=== PATIENT | female | born 1955 | race Caucasian/White ===

== ENCOUNTER → 2021-10-04 02:45 | Outpatient (CLI) | payer MEDICAID, SELFPAY ==
--- NOTE | 2021-10-04 07:45 | DI.MAMMO_ITS ---
Exam(s) MAMMO SCREENING EXAM: MAMMO SCREENING CLINICAL HISTORY: screening,Z12.39. TECHNIQUE: Bilateral full field digital CC and MLO mammographic images were obtained with 3D tomosyn thesis and utilizing computer aided detection (CAD). COMPARISON: None FINDINGS: There are no spiculated masses nor malignant appearing microcalcification groups. There is no significant architectural distortion nor skin thickening-retraction. IMPRESSION: No radiographic evidence of malignancy. BI-RADS Category 1 - Negative Breast Density - Category B - Scattered areas of fibroglandular density Breast density Category C or D implies that the patient has dense breast tissue. Dense breast tissue can make it harder to find cancer on a mammogram. Dense breast tissue is also associated with an incr eased risk of breast cancer. This information about the result of the mammogram report was provided to the patient to raise their awareness. Use this report when you speak with the patient about their risks for breast cancer, which includes their family history. At that time, you may recommend additional screening tests (Ultrasoun d or MRI) as these tests may add significant information. A negative radiographic report should not delay biopsy if a dominant or clinically suspicious mass is present. Up to ten percent of cancers are not identified on mammography. A negative report may reinforce clinical impression. Adenosis and dense breasts may obscure an underlying neoplasm. False positive reports average 6 to 10%. Patient will receive a letter notifying them of these results.
== END ==
PROVIDERS: PCP Nurse Practitioner Adult Health; Visit Provider Nurse Practitioner Adult Health
DX: Z12.31 Encounter for screening mammogram for malignant neoplasm of breast (principal)
CPT/HCPCS: 77063; 77067

== ENCOUNTER 2021-10-05 03:23 | Outpatient (CLI) | payer MEDICAID, SELFPAY ==
[2021-10-05 10:33] LABS: Anion Gap 9.6 mmol/L (3-11); BUN 9 mg/dL (7-18); CO2 28.4 mmol/L (21.0-32.0); CREATININE 0.7 mg/dL (0.55-1.02); Calcium 9.2 mg/dL (8.5-10.1); Chloride 102 mmol/L (98-107); Glucose 100 mg/dL (74-106); Potassium 4.5 mmol/L (3.5-5.1); Sodium 140 mmol/L (136-145)
[2021-10-05 11:22] LABS: Calculated LDL 147 mg/dL (<100); Cholesterol 235 mg/dL (<200); Folate 5.6 ng/mL (8.6-20.0); HDL Cholesterol 63 mg/dL (40-60); Triglyceride 128 mg/dL (<150); Vitamin B12 407 pg/mL (193-986)
[2021-10-06 09:55] LABS: HIV-1/2 Ag & Ab Screen Negative (Negative)
[2021-10-06 10:05] LABS: Hepatitis C Ab w Rflx HCV PCR Negative (Negative)
== END 2021-10-05 03:24 | disposition home or self-care (01) ==
LOC: LBO 03:24
PROVIDERS: PCP Nurse Practitioner Adult Health; Referring Provider Nurse Practitioner Adult Health; Visit Provider Nurse Practitioner Adult Health
DX: Z11.4 Encounter for screening for human immunodeficiency virus [HIV] (principal); Z11.59 Encounter for screening for other viral diseases; Z13.1 Encounter for screening for diabetes mellitus; Z13.220 Encounter for screening for lipoid disorders; Z83.3 Family history of diabetes mellitus
CPT/HCPCS: 36415; 80048; 80061; 86803; 87389; 82607; 82746

== ENCOUNTER 2021-11-12 16:04 | Outpatient (REF) | payer MEDICAID, SELFPAY ==
--- NOTE | 2021-11-12 15:30 | PAPFT_PTH ---
PATIENT: Chante Thomas LOC: [facility] U#:[id number] AGE/SX: 66/F ROOM: RE11/12/[address]: Cristy Porras APRN : 1955 BED: DIS: 11/12/2021 SPEC #: [id number] RECD: 11/12/21 18:07 STATUS: STEPHENIE REQ #: [id number] CURTIS: 11/12/21 15:[address]: Cristy Porras DEPT: [facility] Cytology RECD BY: Kathy Umana Tissues: 1 - CX/ENDOCX FOR PAP SMEARS Procedures: PAP THIN PREP/[facility] Screening HPV DNA PROBE Comments: [id number]
== END 2021-11-12 16:05 | disposition home or self-care (01) ==
LOC: LBN 16:04
PROVIDERS: PCP Nurse Practitioner Adult Health; Visit Provider Nurse Practitioner Adult Health
DX: Z12.4 Encounter for screening for malignant neoplasm of cervix (principal); Z11.51 Encounter for screening for human papillomavirus (HPV)
CPT/HCPCS: 88142; 87624

== ENCOUNTER 2022-12-02 14:12 | Outpatient (CLI) | payer MEDICARE, MEDICAID, SELFPAY ==
--- NOTE | 2022-12-02 14:00 | RT.EKG_ITS ---
APPROVED REPORT Exam: Resting ECG Reason for Exam: pre syncope Patient Location: O HR:55 bpm ECG Measurements Heart Rate 55 AXIS MO 142 P 39 QRSd 106 QRS 9 QT 413 T 57 QTc 395 Conclusion Sinus rhythm...normal P axis, V-rate 50- 99 Baseline wander in lead(s) V3 Normal Electrocardiogram
== END 2022-12-02 14:13 | disposition home or self-care (01) ==
PROVIDERS: PCP Nurse Practitioner Adult Health; Visit Provider Emergency Medicine
DX: R55 Syncope and collapse (principal)
CPT/HCPCS: 93010

== ENCOUNTER → 2022-12-02 19:15 | Outpatient (CLI) | payer MEDICARE, MEDICAID, SELFPAY ==
--- NOTE | 2022-12-02 14:45 | DI.RAD_ITS ---
Exam(s) XR CHEST 2V PA LATERAL EXAM: XR CHEST 2V PA LATERAL CLINICAL HISTORY: folate def SYNCOPE AND COLLAPSE R55 DEFICIENCY E53.8 TECHNIQUE: 2D digital imaging was performed. COMPARISON: No exams were available for comparison FINDINGS: HEART: Normal size. Aorta: Not dilated. PULMONARY VASCULATURE: Normal. LUNGS: Hyperinflated but clear. PLEURAL SPACE: No pleural effusion or pneumothorax. BONE:Unremarkable for age. IMPRESSION: No acute abnormality. DATA REPOSITORY: RADIATION DOSE DELIVERED:
== END ==
PROVIDERS: PCP Nurse Practitioner Adult Health; Visit Provider Emergency Medicine
DX: E53.8 Deficiency of other specified B group vitamins (principal); R55 Syncope and collapse
CPT/HCPCS: 36415; 80053; 80061; 71046; 82746; 84443; 85025; 86140

== ENCOUNTER 2022-12-02 21:16 | Outpatient (CLI) | payer MEDICARE, MEDICAID, SELFPAY ==
[2022-12-02 15:20] LABS: Abs Immature Grans 0.03 10^3/uL (0.0-0.06); Absolute Basophil Count 0.06 10^3/uL (0.0-0.2); Absolute Eosinophil Count 0.06 10^3/uL (0.0-0.7); Absolute Lymphocyte Count 3.23 10^3/uL (1.2-3.4); Absolute Monocyte Count 0.59 10^3/uL (0.1-0.8); Basophils % 0.5; Eosinophils % 0.5; HCT 42.7 % (36.0-46.0); HGB 14.4 g/dL (11.2-15.7); Immature Grans % 0.3; Lymphocytes % 28.1; MCH 30.1 pg (27.0-33.0); MCHC 33.7 % (32.0-36.0); MCV 89 fL (80-95); MPV 10.8 fL (8.0-11.0); Monocytes % 5.1; Neutrophils % 65.5; Platelet Count 265 10^3/uL (130-400); RBC 4.79 10^6/uL (3.93-5.22); RDW 13.2 % (11.7-14.6); RDW-SD 43.5 fL; WBC 11.49 10^3/uL (4.4-10.8)
[2022-12-02 15:23] LABS: Absolute Neutrophil Count 7.53 10^3/uL (1.2-6.7)
[2022-12-02 16:22] LABS: ALT 22 U/L (14-59); AST 12 U/L (15-37); Alkaline Phosphatase 87 U/L (46-116); Anion Gap 9.8 mmol/L (3-11); BUN 12 mg/dL (7-18); Bilirubin, Total 0.2 mg/dL (0.2-1.0); CO2 25.2 mmol/L (21.0-32.0); CREATININE 0.8 mg/dL (0.55-1.02); Calcium 9.5 mg/dL (8.5-10.1); Calculated LDL 145 mg/dL (<100); Chloride 99 mmol/L (98-107); Cholesterol 239 mg/dL (<200); Estimated GFR 81.72 (mL/min/1.73m2); Glucose 104 mg/dL (74-106); HDL Cholesterol 64 mg/dL (40-60); Potassium 3.7 mmol/L (3.5-5.1); Sodium 134 mmol/L (136-145); TSH 1.99 uIU/mL (0.36-3.74); Total Protein 7.6 g/dL (6.4-8.2); Triglyceride 150 mg/dL (<150)
[2022-12-02 16:25] LABS: Folate 5.5 ng/mL (8.6-20.0)
[2022-12-02 17:11] LABS: C-Reactive Protein 0.08 mg/dL (0.0-0.3)
== END 2022-12-02 21:17 | disposition home or self-care (01) ==
LOC: LBO 21:18
PROVIDERS: PCP Nurse Practitioner Adult Health; Visit Provider Emergency Medicine
DX: E53.8 Deficiency of other specified B group vitamins (principal); R55 Syncope and collapse; E03.9 Hypothyroidism, unspecified
CPT/HCPCS: 36415; 80053; 80061; 82746; 84443; 85025; 86140

== ENCOUNTER 2022-12-19 00:46 | Outpatient (CLI) | payer MEDICARE, MEDICAID, SELFPAY ==
--- NOTE | 2022-12-19 07:30 | DI.NM_ITS ---
APPROVED REPORT Exam: Pharmacologic Patient Location: Out-Patient Room/Bed: Stress Nurse: Edson Hunt RN Ordering Provider:EDENILSON ALAMO, Contact Number: [phone] BMI: 19.75 Baseline Rhythm: Sinus Bradycardia Indications: Chest pain, Lightheaded followed by vomiting. Medical History Medical History: near syncope, Elevated LDL, smoker. Cardiac Medications: none Allergies: No known drug allergies Cardiac Risk Factors: smoker, elevated LDL Previous Cardiac Procedures: none Pretest Chest Pain Characteristics: none Exercise History: Physically active Physical Disabilities: none Lung Sounds: Clear to auscultation Heart Sounds: Regular Stress Test Details Test: Pharmacologic stress testing performed using 0.4 mg of regadenoson per 5 mL given IV over 10 s econds. Reason for pharmacologic stress test: Excessive artifact.. Nuclear Acquisition: Rest Tc-99m/Stress Tc-99m 1 day Rest Isotope: Tc-99m Sestamibi. Dose: 10 Date: 12/19/2022 Injection Time: 1100 Stress Isotope: Tc-99m Sestamibi. Dose: 31 Date: 12/19/2022 Injection Time: 1240 HR Resting HR Supine: 55 bpm Max Heart Rate (APMHR): 155.289060 bpm Resting HR Standin bpm Target HR (85% APMHR): 131.933614 bpm Max HR Achieved: 141 bpm % of APMHR: 90.97 Recovery HR: 81 bpm HR response to stress: Normal HR response to stress BP Resting BP Supine: 110/82 mmHg Resting BP Standin/72 mmHg Max BP: 128/72 mmHg Recovery BP: 110/72 mmHg BP response to stress: Normal blood pressure response to stress. ECG Resting ECG: Sinus Bradycardia Ectopy: Rare PAC. Stress ECG: Sinus Tachycardia ST Change: No significant ST segment changes noted Arrhythmia: Frequent PAC's, occasional run of SVT. Recovery ECG: Sinus Rhythm Recovery ST Change: No significant ST segment changes noted Recovery Arrhythmia: Occasional PAC Clinical Stress Symptoms: Occasional congested cough. Nausea. Rate Pressure Product: [id number] Stress ECG Conclusion 1. Resting electrocardiogram was within normal limits 2. Patient underwent testing using pharmacologic stress with regadenoson 3. Electrocardiographic portion of the test was nondiagnostic 4. There were no dysrhythmias 5. See MPI report Stress Test Summary STAGE HR BP SpO2 Symptoms NOTES 1 min post Lexiscan injection 60 118/82 99 none 3 min post Lexiscan injection 98 122/68 Nausea, congested cough. 6 min post Lexiscan injection 81 110/72 none Unable to perform Travis due to excesive artifact. Episodes of SVT with walking prior to walking Kathy scan attempt. Lying Lexiscan done. MPI Conclusion Myocardial perfusion is normal. There is no ischemia or evidence of prior infarction Ejection fraction is 57% with normal wall motion Radiologist Interpretation Radiologist agrees with Pantry Chef's Interpretation. Radiologist Interpretation by: Liu Escobar MD Interpretation Date/Time: 12/19/2022 15:16:58
[2022-12-19] MEDS: Regadenoson 0.4 MG/5 ML SYR IVP (13:10)
== END 2022-12-19 01:06 ==
LOC: DI 00:46
PROVIDERS: PCP Nurse Practitioner Adult Health; Visit Provider Emergency Medicine
DX: R06.09 Other forms of dyspnea (principal)
CPT/HCPCS: 78452; 93016; 93018; 93017; J2785

== ENCOUNTER 2023-09-30 21:40 | Emergency (ER) | payer MEDICARE, SELFPAY ==
[2023-09-30 21:42] VITALS: BP 133/93; PULSE 67; RESP 14; TEMP 36.1; O2SAT 99
--- NOTE | 2023-09-30 22:03 | ED.GENADUL_ITS ---
Discharge Plan Disposition Patient Disposition: Home Condition: Good Discharge Details Clinical Impression: Finger infection Primary Care Provider: Cristy Porras ED Provider: Akil Mirzas and New Rx's Prescriptions: New amoxicillin-pot clavulanate 875-125 mg tablet 1 tab PO BID Qty: 12 0RF No Action valacyclovir [Valtrex] 1 gram tablet 1,000 mg PO BID Qty: 14 0RF Rx Instructions: Start within 72h of symptoms folic acid 1 mg tablet 1 mg PO DAILY Qty: 90 3RF Discharge Instructions Instructions: Wound Infection Additional Instructions: You were seen for finger infection. You have been started on antibiotics. Recommend soaking that finger in Epsom salt solution once or twice a day now that we have opened up the side that has been draining. Please follow-up with your primary care physician next week for recheck. Return to ED for increasing pain, swelling, extension down into the hand, fever, other concerns. HPI General Mode of arrival: ambulatory . Date/Time Provider Initiated Documentation: 09/30/23 21:48 . Limitations to Documentation: no limitations . Information obtained by: patient and RN notes reviewed . HPI Narrative: Patient presents to ED with left ring finger pain and swelling. Patient has had a pimple on the side of her ring finger for weeks. She periodically picks at it and does have some purulent drainage from it. Does not recall any specific injury. In the last 24 hours finger has become very swollen, red, painful. Denies fever or chills. Denies redness or streaking up the finger, hand, arm. Related Data Home Medications ?Medication ?Instructions ?Recorded ?Confirmed folic acid 1 mg tablet 1 mg PO DAILY #90 tabs 12/05/22 09/30/23 valacyclovir 1 gram tablet 1,000 mg PO BID #14 tabs 12/07/22 09/30/23 (Valtrex) amoxicillin 875 mg-potassium 1 tab PO BID #12 tabs 09/30/23 clavulanate 125 mg tablet Previous Rx's ?Medication ?Instructions ?Recorded folic acid 1 mg tablet 1 mg PO DAILY #90 tabs 12/05/22 valacyclovir 1 gram tablet 1,000 mg PO BID #14 tabs 12/07/22 (Valtrex) amoxicillin 875 mg-potassium 1 tab PO BID #12 tabs 09/30/23 clavulanate 125 mg tablet Allergies Allergy/AdvReac Type Severity Reaction Status Date / Time No Known Allergies Allergy Verified 09/30/23 21:47 General Stated Complaint: Cellulitis RAJESH: 4 Review of Systems Narrative: Per HPI Exam Narrative Exam Narrative: Const: WDWN female in NAD. VS per triage. HEENT: NC/AT. Normal facial exam. Neck: Supple. Trachea midline. Lungs: Normal respiratory effort Neuro: A+O x 3. Normal speech, mentation, gait. Cranial nerves II - XII grossly intact. No gross motor or sensory deficit. Ext: No C/C/E. Left ring finger with fluctuant tender area ulnar aspect, distal finger just past the DIP joint. Erythema and swelling around the cuticle to the pad, all distal to DIP joint. Ring present proximally and patient has been unable to remove. Proximal finger is not swollen or red or painful at this time. Good flexion extension present. Course Vital Signs Vital signs: Vital Signs Temperature 97.0 F L 09/30/23 21:42 Pulse 67 09/30/23 21:42 Respiratory Rate 14 09/30/23 21:42 Blood Pressure 133/93 H 09/30/23 21:42 Pulse Oximetry 99 09/30/23 21:42 Temperature 97.0 F L 09/30/23 21:42 Pulse 67 09/30/23 21:42 Respiratory Rate 14 09/30/23 21:42 Blood Pressure 133/93 H 09/30/23 21:42 Pulse Oximetry 99 09/30/23 21:42 Oxygen Delivery Method Room Air 09/30/23 21:42 Oxygen Flow Rate 0 09/30/23 21:42 Pain Level 9 09/30/23 21:42 Procedures Abscess I/D Site: Hand Side (if applicable): Left Technique: Incised with #11 Blade Irrigation: Yes Packing used?: None Nerve Block Nerve Block 1: Local Anesthetic: Lidocaine 2% Amount of anesthesia used (mL): 3 Side: left Nerve Blocks: digital Procedure Successful: Yes Patient Tolerated Procedure: well Complications: none Medical Decision Making Patient presenting with what appears to be an abscess with distal left ring finger now with erythema, swelling, pain involving finger distal to the DIP joint. No evidence of tendon involvement. Ring is cut off with permission from patient. Digital block performed. I&D performed. Minimal pus, mostly bleeding. Forceps and irrigation to clean underlying cavity. No obvious foreign body found. Given the chronicity of the wound will place on Augmentin. Follow-up with primary care next week for recheck. Return precautions provided. PFSH All Active Problems (Updated 09/30/23 @ 23:00 by Akil Mirza MD) Finger infection (Acute) Near syncope (Acute ~11/2022) Uterine prolapse (Acute) Lung cancer screening declined by patient (Acute) Elevated LDL cholesterol level (Acute) Folate deficiency (Chronic ~2021) Tetrahydrocannabinol (THC) dependence (Chronic) Nicotine use disorder (Chronic) Vaginal mass (Chronic ~1985) Non-healing skin lesion (Acute ~2018) Medical History Squamous cell carcinoma in situ (~04/2022) central chest re-shave biopsy Dr Peralta,[facility] History of herpes genitalis Surgical History S/P skin biopsy (~04/2022) [facility] Central chest re-shave biopsy scar Family History Father , CVA, late 70s Alcohol use disorder Diabetes Hypertension Stroke Mother , late 70s from lymphoma Cancer Bladder Hyperlipidemia Social History Smoking/Tobacco Use Status: Current every day Tobacco Type: cigarettes Years smoked: 50 Tobacco: How many years used: 50 Quit status: considering quitting Second Hand Exposure: Yes Smoking risk assessment performed?: Yes Alcohol Intake: current Alcohol Intake frequency: holidays/special occasions only Drug use: Daily Substance use type: marijuana and hallucinogens Adopted: No Caregiver/Support person: No Foster care: No Household members: spouse and family Housing: house Number of Children: 3 number of grandchildren: 1 Communication Needs: None Education Level: high school Details: [employer] Do you need help understanding health information?: Often 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 Pets and animals: Yes Pets and animals: cat(s) and dog(s) Sexually active: No Do you think of yourself as: straight/heterosexual Current gender identity: female What is your relationship status?: How often do you talk on the phone with friends or family?: three or more times per week How often do you get together with friends or relatives?: three or more times per week Do you belong to any clubs or organized social groups?: no Panel score (0-1 are the most socially isolated patients): 2 What type of physical activity do you participate in: walking Duration: > 90 minutes/day Frequency: 5-6 times per week Seatbelt use: always Helmet use: Yes Helmet use: always Drive intox or ride w/intox delivery driver/customer service: No Do you feel safe at home: Yes Do you feel safe in your relationship?: Yes
--- NOTE | 2023-09-30 22:23 | NUR.NOTE ---
Nursing Note: removed ring with ring cutter as per .
== END 2023-09-30 23:12 | disposition home or self-care (01) ==
LOC: ER 23:00 → RED 23:12
PROVIDERS: Emergency Provider Emergency Medicine; PCP Nurse Practitioner Adult Health
DX: L02.512 Cutaneous abscess of left hand (principal); F17.210 Nicotine dependence, cigarettes, uncomplicated
CPT/HCPCS: 10060; 99283

== ENCOUNTER 2024-12-07 20:39 | Emergency (ER) | payer MEDICARE, SELFPAY ==
--- NOTE | 2024-12-07 20:30 | RT.EKG_ITS ---
APPROVED REPORT Exam: Resting ECG Reason for Exam: chest pain Patient Location: E HR:70 bpm ECG Measurements Heart Rate 70 AXIS W[place] [id number] P [id number] QRSd 77 QRS 98 QT 381 T 98 QTc 412 Conclusion Atrial fibrillation...? atrial activity Inferior infarct, acute...ST>0.10mV, T upright, II III aVF STEMI
[2024-12-07 20:40] VITALS: BP 92/71; PULSE 68; RESP 20; O2SAT 98
--- NOTE | 2024-12-07 20:40 | W.ED.GENAD ---
Discharge Plan Disposition Patient Disposition: Transfer-Acute Inpatient Care Specific Acute Inpt Facility: [facility] Condition: Critical Discharge Details Clinical Impression: ST elevation (STEMI) myocardial infarction, Cardiac arrest, Cardiac arrest with ventricular fibrillation, Ventricular tachycardia Primary Care Provider: Cristy Porras ED Provider: Franklin Ragland [place] Meds and New Rx's Prescriptions: Continued valacyclovir [Valtrex] 1 gram tablet 1,000 mg PO BID Qty: 14 0RF Rx Instructions: Start within 72h of symptoms cholecalciferol (vitamin D3) 50 mcg (2,000 unit) capsule 50 mcg PO DAILY Qty: 90 3RF folic acid 1 mg tablet 1 mg PO DAILY Qty: 90 3RF acetaminophen 500 mg tablet 1,000 mg PO Q6H PRN cholecalciferol (vitamin D3) 1,250 mcg (50,000 unit) capsule 1,250 mcg PO .Twice a week Rx Instructions: for 24 doses. enoxaparin 30 mg/0.3 mL syringe 30 mg subcut Q12H Rx Instructions: x 24 days methocarbamol 500 mg tablet 500 mg PO Q6H PRN oxycodone 5 mg tablet See Rx Instructions PO Q6H PRN (Reason: pain) Rx Instructions: 1-2 tablets orally every 6 hours PRN; Daily max dose 40mg #20 written 12/06/2023 by Orthopedics at [facility] Discharge Data Discharge Physician: Franklin Ragland HPI General Date/Time Provider Initiated Documentation: 12/07/24 20:40. HPI Narrative: Patient presents emergency department after she was at the over her at 6 PM and according to them he started having epigastric pressure and came to the emergency department about an hour and a half later stating that she did not feel good nauseous with epigastric pressure. Also reports she was nauseous Related Data Home Medications ?Medication ?Instructions ?Recorded ?Confirmed folic acid 1 mg tablet 1 mg PO DAILY #90 tabs 12/05/22 12/07/24 Held on 12/07/24. Instructions: Pt Stopped/Never Started valacyclovir 1 gram tablet 1,000 mg PO BID #14 tabs 12/07/22 12/07/24 (Valtrex) Held on 12/07/24. Instructions: Pt Stopped/Never Started acetaminophen 500 mg tablet 1,000 mg PO Q6H PRN 12/07/23 12/07/24 cholecalciferol (vitamin D3) 1,250 1,250 mcg PO .Twice a week 12/07/23 12/07/24 mcg (50,000 unit) capsule enoxaparin 30 mg/0.3 mL 30 mg subcut Q12H 12/07/23 12/07/24 subcutaneous syringe Held on 12/07/24. Instructions: Prescription Finished methocarbamol 500 mg tablet 500 mg PO Q6H PRN 12/07/23 12/07/24 Held on 12/07/24. Instructions: Pt Stopped/Never Started oxycodone 5 mg tablet See Rx Instructions PO Q6H PRN pain 12/07/23 12/07/24 Held on 12/07/24. Instructions: Prescription Finished cholecalciferol (vitamin D3) 50 50 mcg PO DAILY #90 caps 12/14/23 12/07/24 mcg (2,000 unit) capsule Previous Rx's ?Medication ?Instructions ?Recorded folic acid 1 mg tablet 1 mg PO DAILY #90 tabs 12/05/22 Held on 12/07/24. Instructions: Pt Stopped/Never Started valacyclovir 1 gram tablet 1,000 mg PO BID #14 tabs 12/07/22 (Valtrex) Held on 12/07/24. Instructions: Pt Stopped/Never Started cholecalciferol (vitamin D3) 50 50 mcg PO DAILY #90 caps 12/14/23 mcg (2,000 unit) capsule Allergies Allergy/AdvReac Type Severity Reaction Status Date / Time No Known Allergies Allergy Verified 12/07/24 22:19 General RAJESH: 4 Review of Systems Narrative: Review of Systems: Constitutional: No fevers, chills, sweats Eye: No recent visual problems ENT: No ear pain, nasal congestion, sore throat Respiratory: No shortness of breath, cough Cardiovascular: No Chest pain, palpitations, syncope Genitourinary: No hematuria Jatin/Lymph: Negative for bruising tendency, swollen lymph glands Endocrine: Negative for excessive thirst, excessive hunger Musculoskeletal: No back pain, neck pain, joint pain, muscle pain, decreased range of motion Integumentary: No rash, pruritus, abrasions Neurologic: Alert & oriented X 4 Psychiatric: No anxiety, depression Exam Narrative Exam Narrative: Exam; vitals signs as reported above normal Constitutional; In no mild distress, afebrile General: cooperative, healthy appearing, comfortable and no acute distress HEENT: Head: normal to inspection, no palpable skull fracture and normocephalic atraumatic Eyes: : appearance normal, both eyes and all related structures EOM intact bilaterally Pupils: PERRL : conjunctiva normal Direct ophthalmoscopy: normal light reflex, normal conjunctiva, normal visual acuity Ears: Normal TM, normal external canal Nose: normal no rhinorreha Neck no JVD, supple non tender Neck: normal visual inspection, full ROM and no lymphadenopathy Chest: normal inspection of the chest Respiratory : normal respiratory effort and able to speak in complete sentences no wheezing no rales Cardio Rate: regular rate, rhythm: regular rhythm normal heart sounds S1 and S2 no murmurs, gallops, or rubs GI : normal to inspection, normal bowel sounds, soft, non tender, non distended, no organomegaly Back/Spine/ no CVA tenderness Thoracic/Lumbar Spine: no tenderness or deformities Skin no rashes or lesions Neuro: patient alert oriented x 4 and no meningeal signs, Cranial Nerves: CN's II-XI intact bilaterally, Cognition: normal cognition, Speech: speech normal, Gait: normal gait, Depp tendon reflexes normal 2+ muscle strength 5/5 bilaterally Extremities, no edema, full range of motion, normal strength Course Patient presented to emergency department with epigastric pressure and EKG shows an ST segment elevation myocardial infarction primarily in the inferior leads with T wave inversion in V2 through V3 V4-V6. Bedside echo shows hypokinesis of the inferior lateral dai. Initially she received aspirin 324 mg Reevaluation(s) Time: 21:27 Reevaluation: Between 2126 hrs. 2 minutes after she received received tenecteplase patient goes into cardiac arrest with no pulseand respirations with a monitor showing ventricular fibrillation. At the time CPR was started she received 200 J of synchronized cardioversion so no pulse as she was in V. tach. She received other cardioversion and maximum voltage, was noted she went into torsade. At this time she received magnesium and another cardioversion putting back into normal sinus rhythm with a heart rate of 65. Amiodarone was given loading dose IV. Also magnesium was given. At this time [facility] helicopter paramedics arrived. patient was intubated with RSI successfully. Consultations Consultation #1: Consulted with [facility] cardiology who agreed that the patient will need tenecteplase, Brilinta, and a heparin infusion and be transported via helicopter to [facility]'s [facility] Procedure Airway Management Date of Procedure: 12/07/24 Time of Procedure: 21:32 Patient Consented: Emergent Case Indication: Airway injury, Apnea and Respiratory failure Provider that performed the procedure: Franklin Ragland Mallampati Class: 2 Sedation administered by provider performing procedure: Yes. Induction setup: Apneic Oxygenation, Bag Valve Mask Ventilation and Rapid Sequence Induction Ultrasound: Used/Image Saved Airway Type: Intubation Grade: Paralytic(indicate dose given): Succinylcholine Post Induction Medication Management(indicate dose given): Managed by Requesting Provider and Other (Etomidate) Gastric Tube: Not Placed Procedure Complications: None Procedure Outcome: Successful Medical Decision Making MDM: Summary: Patient presented to the emergency department with a STEMI after 2 hours of having symptoms and emergency department she received aspirin, IV fluids and she was given tenecteplase after cardiac consultation with [facility] cardiology had excepted patient to take her to the [facility] but they recommended thrombolysis. After thrombolysis the patient went into cardiac arrest with a rhythm of ventricular fibrillation she was emergency cardioverted still with no pulse and went into ventricular tachycardia she was cardioverted again epinephrine was also given twice through the CPR ( aproximately 7 min) process she also had an episode of torsades and eventually she regained normal sinus rhythm with a heart rate in the 50s and a blood pressure 100/70. At that time the cuff ambulance had arrived and although she was still recuperating for the cardiac arrest she was intubated by me and and RSI. Bedside echocardiogram shows normal iliana ventricle with some hypokinesis of the inferior wall. She received also amiodarone and was transported via helicopter to [facility]. She was accepted by Dr. Jessie Pickett Data Review Analysis All the data on this patient was reviewed by me including laboratory and imaging studies as well as bedside studies performed by me Independent review of Studies Imaging As reported above Lab: Labs showed mild ovation troponin at 100 Risk Stratification: High risk patient with a STEMI leading to cardiac arrest and this postcardiac arrest after successful cardioversion is being transported to the catheterization lab Differential Diagnosis: 1. ST segment ovation myocardial infarction acute coronary syndrome 2. V-fib arrest 3. V. tach arrest 4. 5. Consultants: Consulted with [facility] cardiology was accepted patient transportation Shared disposition: I spoke with the family and they understand the situation and agree Impression: Medical Records Medical records reviewed: Yes I reviewed the patient's medical records. Lab Data Lab results reviewed: Yes I reviewed the patient's lab results. ECG Data Attestation: I personally reviewed and interpreted this ECG (s) as follows: Prior ECG tracings: available for review Interpretation: Heart rate of 70 ST segment elevation in 2 3 aVF. With reciprocal changes in V2 V3 V5 V6 Core Measures AMI Core Measures Followed: Yes Critical Care Time Critical Care Time Critical Care Time: Yes Total Critical Care Time: 65 Attestation: 65 minutes excluding procedures pending deterioration of the previous persistent PFSH All Active Problems (Updated 12/07/24 @ 22:22 by Franklin Ragland MD) Ventricular tachycardia (Chronic) Cardiac arrest with ventricular fibrillation (Acute) Cardiac arrest (Acute) ST elevation (STEMI) myocardial infarction (Acute) Osteoporosis (Chronic ~11/2023) Fracture of femoral neck, left (Acute ~11/2023) Closed Colles' fracture of left radius (Acute ~11/2023) Near syncope (Acute ~11/2022) Uterine prolapse (Acute) Lung cancer screening declined by patient (Acute) Elevated LDL cholesterol level (Acute) Folate deficiency (Chronic ~2021) Tetrahydrocannabinol (THC) dependence (Chronic) Nicotine use disorder (Chronic) Vaginal mass (Chronic ~1985) Non-healing skin lesion (Acute ~2018) Medical History Squamous cell carcinoma in situ (~04/2022) central chest re-shave biopsy Dr Peralta,[facility] History of herpes genitalis Surgical History History of open reduction and internal fixation (ORIF) procedure (~12/02/23) Neck of L femur on 12/02/2023 by Zay Gottlieb at [facility] S/P skin biopsy (~04/2022) [facility] Central chest re-shave biopsy scar Family History Father , CVA, late 70s Alcohol use disorder Diabetes Hypertension Stroke Mother , late 70s from lymphoma Cancer Bladder Hyperlipidemia Social History Smoking/Tobacco Use Status: Current every day Tobacco Type: cigarettes Years smoked: 50 Tobacco: How many years used: 50 Quit status: considering quitting Second Hand Exposure: Yes Smoking risk assessment performed?: Yes Alcohol Intake: current Alcohol Intake frequency: holidays/special occasions only Drug use: Daily Substance use type: marijuana and hallucinogens Adopted: No Caregiver/Support person: No Foster care: No Household members: spouse and family Housing: house Number of Children: 3 number of grandchildren: 1 Communication Needs: None Education Level: high school Details: [employer] Do you need help understanding health information?: Often 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 Pets and animals: Yes Pets and animals: cat(s) and dog(s) Sexually active: No Do you think of yourself as: straight/heterosexual Current gender identity: female What is your relationship status?: How often do you talk on the phone with friends or family?: three or more times per week How often do you get together with friends or relatives?: three or more times per week Do you belong to any clubs or organized social groups?: no Panel score (0-1 are the most socially isolated patients): 2 What type of physical activity do you participate in: walking Duration: > 90 minutes/day Frequency: 5-6 times per week Seatbelt use: always Helmet use: Yes Helmet use: always Drive intox or ride w/intox 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
[2024-12-07 20:45] VITALS: BP 93/71; PULSE 69; O2SAT 100
[2024-12-07] MEDS: Normal Saline 1,000 ML 1000 ML IV (20:45)
--- NOTE | 2024-12-07 20:45 | DI.RAD_ITS ---
Exam(s) XR PORTABLE CHEST AP EXAM: XR PORTABLE CHEST AP CLINICAL HISTORY: cp TECHNIQUE: 2D digital imaging was performed of the chest. One image was obtained. An AP view was obtained. COMPARISON: CR XR CHEST 2V PA LATERAL from 12/02/2022 FINDINGS: MEDIASTINUM: Normal. HEART: Normal. PULMONARY VASCULATURE: Normal. LUNGS: There is mild peribronchial thickening present. No focal consolidating infiltrates are seen. The lungs are hyperinflated suggesting underlying COPD. Nipple shadows are present bilaterally. There is an area of density noted just above the right hemidiaphragm which is likely reflective of the costal cartilage junction of the right 7th rib. PLEURAL SPACE: No pleural effusion or pneumothorax. BONE:Within normal limits for the patient's age. OTHER FINDINGS:Normal. IMPRESSION: 1. Mild peribronchial thickening. No focal consolidating infiltrates are seen. The findings may represent bronchitis. 2. The preliminary [facility] report was reviewed. DATA REPOSITORY: RADIATION DOSE DELIVERED:
[2024-12-07] MEDS: Aspirin 81 MG CHEW 324 MG CH (20:59)
[2024-12-07 21:17] LABS: Abs Immature Grans 0.12 10^3/uL (0.0-0.06); HCT 41.1 % (36.0-46.0); HGB 13.7 g/dL (11.2-15.7); Immature Grans % 0.7 %; MCH 29.9 pg (27.0-33.0); MCHC 33.3 % (32.0-36.0); MCV 90 fL (80-95); MPV 11.4 fL (8.0-11.0); Platelet Count 288 10^3/uL (130-400); RBC 4.58 10^6/uL (3.93-5.22); RDW 13.7 % (11.7-14.6); RDW-SD 45.3 fL; WBC 17.86 10^3/uL (4.4-10.8)
[2024-12-07] MEDS: Tenecteplase 50 MG KIT 30 MG IVP (21:26)
[2024-12-07] MEDS: EPINEPHrine 1 MG/10 ML SYR IVP ×2 (21:30→21:33)
[2024-12-07] MEDS: MAGNESIUM SULFATE 4 GM/100 ML BAG IV_INF (21:32)
[2024-12-07 21:33] LABS: ALT 145 U/L (14-59); AST 194 U/L (15-37); Albumin 4.1 g/dL (3.4-5.0); Alkaline Phosphatase 164 U/L (46-116); Anion Gap 14.4 mmol/L (3-11); BUN 21 mg/dL (7-18); Bilirubin, Total 0.7 mg/dL (0.2-1.0); CO2 24.6 mmol/L (21.0-32.0); Calcium 9.4 mg/dL (8.5-10.1); Chloride 103 mmol/L (98-107); Estimated GFR 55.07 (mL/min/1.73m2); Glucose 208 mg/dL (74-106); Lipase 42 U/L (<78); Potassium 3.9 mmol/L (3.5-5.1); Sodium 142 mmol/L (136-145); Total Protein 7.2 g/dL (6.4-8.2)
[2024-12-07 21:35] LABS: Troponin I 101 ng/L (<or=51)
[2024-12-07 21:40] VITALS: PULSE 54; PULSE 57; RESP 30; O2SAT 77
[2024-12-07] MEDS: Etomidate 20 MG/10 ML VIAL (21:40)
[2024-12-07] MEDS: Succinylcholine 100 MG/5 ML SYR (21:41)
[2024-12-07 21:48] VITALS: BP 105/45; PULSE 139; PULSE 47; RESP 14
--- NOTE | 2024-12-07 22:47 | DI.[facility]_ITS ---
PROCEDURE INFORMATION: Exam: XR Chest Exam date and time: 12/07/2024 8:58 PM Age: 69 years old Clinical indication: Other: Chest pain TECHNIQUE: Imaging protocol: Radiologic exam of the chest. Views: 1 view. COMPARISON: CR XR CHEST 2V PA LATERAL 08/06/2022 15:13 FINDINGS: Lungs: Nodular density right lower lobe lung may represent portion of the patient's rib end. There is perihilar interstitial prominence. There is peribronchial thickening There are perihilar streaky densities present. These findings are most consistent with bronchitis. No evidence of lobar pneumonia. The pulmonary vasculature is normal. Pleural spaces: There is no evidence of pneumothorax. There are no pleural effusions present. Heart/Mediastinum: The cardiac silhouette is within normal limits. The mediastinum is normal. Bones/joints: The spine, sternum, ribs, and pectoral girdles are normal. Soft tissues: Soft tissue calcification at the level of the right humeral head consider tendonitis or bursitis. IMPRESSION: 1. Findings most consistant with bronchitis. 2. No evidence of lobar pneumonia. 3. Nodular density right lower lobe lung may represent portion of the patient's rib end. Dictated and Authenticated by: Lino Yadav MD. Orderin Obie Reid MD
[2024-12-07 23:05] VITALS: BP 105/45; PULSE 139; RESP 14; O2SAT 77
--- NOTE | 2024-12-10 17:11 | NUR.NOTE ---
Nursing Note: This RN accessed patient's chart fpr clarification with pharmacy on medications given during patient's stay. Order was placed for a heparin infusion, due to patient's condition patient did not receive Heparin infusion. This RN attempted to document in patient's MAR that the medication was not given. Medication is an unscheduled medication and this RN was not able to document that it was not given. This RN has been in communication with Tucker from pharmacy; i was instructed to write in patient's chart that medication was not given. Chante Amador RN (equal opportunity assistant) also aware of situation with medication. Soumya Medeiros RN
== END 2024-12-07 22:14 | disposition short-term general hospital (02) ==
PROVIDERS: Emergency Provider Emergency Medicine Emergency Medical Services; PCP Nurse Practitioner Adult Health
DX: I46.9 Cardiac arrest, cause unspecified (principal); I21.3 ST elevation (STEMI) myocardial infarction of unspecified site; I49.01 Ventricular fibrillation; I47.20 Ventricular tachycardia, unspecified
CPT/HCPCS: 31500; 76604; 80053; 83690; 92950; 93005; 93308; 96360; 99291; 71045; 84484; 85025; 93010; J0282; J0330; J3101; J3475; J3490